=== PATIENT | female | born 1970 ===

== ENCOUNTER 2021-04-16 08:22 | Day surgery (SDC) | payer MEDICAID ==
[~2021-04-16 08:22] MED LIST: Metoclopramide 10 MG/2 ML SDV IV PRN
[2021-04-16] MEDS: Sodium Chloride 0.9% 1,000 ML IV SCH (09:00)
[2021-04-16] MEDS ORDERED: Propofol 200 MG/20 ML SDV ONE (10:15)
--- NOTE | 2021-04-16 12:16 | OR ---
DATE OF OPERATION: 04/16/2021 SURGEON: Sukhdeep Dave MD PREOPERATIVE DIAGNOSIS: Screening colonoscopy. POSTOPERATIVE DIAGNOSIS: Screening colonoscopy. PROCEDURE: Colonoscopy. ANESTHESIA: MAC. ESTIMATED BLOOD LOSS: None. COMPLICATIONS: None. INDICATION FOR THE PROCEDURE: The patient is a 50-year-old female here today for her first colonoscopy. Does have a grandfather who has colon cancer, but parents are otherwise colon cancer free. Denies any change in bowel habits. DESCRIPTION OF PROCEDURE: Informed consent was obtained with the patient. The patient was taken to the operating room, placed on table in left lateral decubitus position. Monitored anesthesia care was administered. Digital rectal exam performed, it was normal. Colonoscope was then advanced through the anus, directed towards the cecum. Cecum was reached and identified by appendiceal orifice and ileocecal valve. Colonoscope was then slowly withdrawn. No masses. No polyps. No areas of ischemia or inflammation identified. Did have what appeared to be a small b in the sigmoid colon that was not attached and was not moving. Remainder of the colon was otherwise unremarkable. Rectum was unremarkable. Colonoscope was then withdrawn. FINDINGS: Normal colon. RECOMMENDATIONS: Would recommend repeat screening colonoscopy in 10 years. ANAMARIA/SHERIN /[id number]
== END 2021-04-16 11:22 | disposition home or self-care (01) ==
LOC: LB.SDS 08:22
PROVIDERS: ATTEND Surgery
DX: Z12.11 Encounter for screening for malignant neoplasm of colon (principal); F17.200 Nicotine dependence, unspecified, uncomplicated; Z80.0 Family history of malignant neoplasm of digestive organs; Z88.8 Allergy status to other drugs, medicaments and biological substances; Z98.890 Other specified postprocedural states
CPT/HCPCS: J2704; J7030